=== PATIENT | female | born 1990 | race Caucasian/White ===

== ENCOUNTER 2023-07-11 18:42 | Emergency (ER) | payer OTHER, SELFPAY ==
[2023-07-11 18:47] VITALS: BP 125/80; PULSE 80; RESP 18; TEMP 36.9; O2SAT 100; BMI 43.1
--- NOTE | 2023-07-11 18:54 | ED.SKABFB1 ---
HPI - Skin/Abscess/Foreign Bdy General Chief complaint: Skin/Abscess/Foreign Body Stated complaint: PIMPLE ON STOMACH Time Seen by Provider: 07/11/23 18:47 Source: patient Mode of arrival: walk-in History of Present Illness HPI narrative: Patient is a 33-year-old female who presents to the emergency department for the evaluation of an abscess with cellulitis to the left lower quadrant of the abdomen for the last several days. She has a history of similar areas in the past but states this seems worse as it has not resolved on its own. There has been some drainage. No fevers or vomiting. She denies concern for . No medications taken prior to arrival Related Data Previous Rx's Medication Instructions Recorded cephalexin 500 mg capsule 500 mg PO Q8H 10 days #30 caps 07/11/23 ondansetron 4 mg disintegrating 4 mg PO Q6H PRN nausea and 07/11/23 tablet vomiting #12 tabs oxycodone-acetaminophen 5 mg-325 1 tab PO Q6H PRN pain #12 tabs 07/11/23 mg tablet (Percocet) sulfamethoxazole 800 1 tab PO BID 10 days #20 tabs 07/11/23 mg-trimethoprim 160 mg tablet (Bactrim DS) Allergies Allergy/AdvReac Type Severity Reaction Status Date / Time No Known Drug Allergies Allergy Verified 07/11/23 18:49 Review of Systems ROS Constitutional Denies: fever or chills Ears, nose, mouth, and throat Denies: throat pain or nasal congestion Cardiovascular Denies: chest pain Respiratory Denies: shortness of breath or cough Gastrointestinal Reports: abdominal pain; Denies: nausea or vomiting Musculoskeletal Denies: back pain Integumentary/Breast Reports: redness, skin pain and skin swelling; Denies: rash Neurological Denies: headache Hematologic/Lymphatic Denies: easy bruising or easy bleeding Exam Narrative Exam Narrative: Gen.: Awake, alert, in no distress Head: Normocephalic, atraumatic ENT: Moist mucous membranes Respiratory: No respiratory distress Gastrointestinal: 1.5 cm raised fluctuant area to the left lower abdomen with surrounding induration and blanching erythema. Abdomen is not distended, no guarding or rebound. Extremities: Moves extremities equally Psych: Normal mood and affect Neuro: No focal neuro deficit Skin: Warm, dry, intact Constitutional Vital Signs, click to edit/add: Last Vital Signs Temp 98.4 F 07/11/23 18:47 Pulse 80 07/11/23 18:47 Resp 18 07/11/23 18:47 BP 125/80 07/11/23 18:47 Pulse Ox 100 07/11/23 18:47 O2 Del Method Room Air 07/11/23 18:47 Course Vital Signs Vital signs: Vital Signs Temperature 98.4 F 07/11/23 18:47 Pulse Rate 80 07/11/23 18:47 Respiratory Rate 18 07/11/23 18:47 Blood Pressure 125/80 07/11/23 18:47 Pulse Oximetry 100 07/11/23 18:47 Oxygen Delivery Method Room Air 07/11/23 18:47 Temperature 98.4 F 07/11/23 18:47 Pulse Rate 80 07/11/23 18:47 Respiratory Rate 18 07/11/23 18:47 Blood Pressure 125/80 07/11/23 18:47 Pulse Oximetry 100 07/11/23 18:47 Oxygen Delivery Method Room Air 07/11/23 18:47 MDM - Skin/Abscess/Foreign Bdy MDM Narrative Medical decision making narrative: Incision and drainage performed with moderate drainage. Please see procedure note for details. Patient instructed to apply warm compresses, she is started on a short course of analgesics, Bactrim and Keflex. Follow-up with PCP and return to the ER if symptoms change or worsen. Incision and drainage: A single layer of iodine was used to prep the area. Drapes were placed to ensure isolation of the abscess and surrounding skin tissue. A regional field block was performed with 1% lidocaine. Incision was made with an 11 blade to the full dimension of the abscess, significant amount purulent material was expressed. Cultures were obtained and sent to the lab. A dry sterile dressing was placed. Patient tolerated the procedure well and will be discharged with Keflex, Bactrim and a short course of analgesic medications. Patient is to follow-up in the next 2-3 days with PCP or ED to have area evaluated. Medical Records Attestation: I reviewed the patient's medical records. Discharge Plan Discharge Stand Alone Forms: Portal Instructions Chief Complaint: Skin/Abscess/Foreign Body Clinical Impression: Abscess of skin or subcutaneous tissue Patient Disposition: Home, Self-Care Time of Disposition Decision: 19:11 Condition: Good Prescriptions / Home Meds: New sulfamethoxazole-trimethoprim [Bactrim DS] 800-160 mg tablet 1 tab PO BID 10 Days Qty: 20 0RF oxycodone-acetaminophen [Percocet] 5-325 mg tablet 1 tab PO Q6H PRN (Reason: pain) Qty: 12 0RF Rx Instructions: DX: L02.211 cephalexin 500 mg capsule 500 mg PO Q8H 10 Days Qty: 30 0RF ondansetron 4 mg tablet,disintegrating 4 mg PO Q6H PRN (Reason: nausea and vomiting) Qty: 12 0RF Instructions: Abscess (ED), Incision and Drainage (ED) Referrals: Physician,Non-Staff, MD [Primary Care Provider] - 1 week
[2023-07-11] MEDS: OXYCODONE HCL/ACETAMINOPHEN 5MG/325MG 2 TAB PO (19:24)
[2023-07-11] MEDS: LIDOCAINE HCL 1% 100 MG/10 ML MDV INJ (19:25)
[2023-07-11] MEDS: CEPHALEXIN 500 MG CAPSULE PO (19:25)
[2023-07-11] MEDS: SULFAMETHOXAZOLE/TRIMETHOPRIM 800-160 MG TABLET 1 TAB PO (19:25)
== END 2023-07-11 19:34 | disposition home or self-care (01) ==
PROVIDERS: Emergency Provider Student in an Organized Health Care Education/Training Program
DX: L02.211 Cutaneous abscess of abdominal wall (principal)
CPT/HCPCS: 10060; 87070; 87150; 87186; 99284

== ENCOUNTER 2023-12-23 20:28 | Emergency (ER) | payer OTHER, SELFPAY ==
[2023-12-23 20:32] VITALS: BP 135/86; PULSE 70; TEMP 36.8; O2SAT 98; BMI 41.9
--- NOTE | 2023-12-23 20:36 | XR_ITS ---
[address] [address] Patient Name: NAN BENTON MRN: [id number] date: 1990 Sex: F Assigned Patient Location: ER Current Patient Location: ER Accession/Order Number: [id number] Exam Date: 12/23/2023 20:42 Report Date: 12/23/2023 21:02 At the request of: MACHO ROMAN Procedure: XR hand LT min 3V Exam: Radiographs: XR hand LT min 3V Reason for exam: hand injury Comparison: None XR/XR hand LT min 3V IMPRESSION: Unremarkable left finger radiographs. Electronically authenticated by: ALBERT LITTLE Date: 12/23/2023 21:02
--- OUTSIDE RECORDS SUMMARY | 2023-12-23 20:36 | XMS_ITS | CCD ---
Author Organization [facility] Care Team Providers Care Last Pattern Grader Name Role Phone REQUEST, DR NONE LISTED Primary Care Unavaila RICH Delacruz Consulting Unavailable PATTI WHITE Admitting Unavailable PATTI WHITE Attending Unavailable Jaimee Bashir Unavailable NO FAMILY, PHYSICIAN Primary Care Provider DAY Plunkett Attending Provider Jaimee Bashir Attending Unavailable Jaimee Bashir Admitting Unavailable NO FAMILY, PHYSICIAN Primary Care Unavailable Medications Completed/Discontinued Medications Medication Drug Class(es) Dates Sig (Normalized) Sig (Original) Brompheniramine / Pseudoephedrine (2 sources) alpha-Adrenergic Agonist Bromfed Not-Taking Dexamethasone (4 sources) Corticosteroid Start: 04-09-2021 DEXAMETHASONE Apr, 10 mg Dexamethasone No t-Taking ibuprofen 600 mg oral tablet (2 sources) Nonsteroidal Anti-inflammatory Drug take 1 tablet by mouth three times daily at mealtime as needed Ibuprofen 600 MG 1 tablet with food or milk as needed Orally Three times a day for 10 day(s) Not-Taking penicillin v potassium 500 mg oral tablet (2 sources) Start: 04-09-20 take 1 tablet by mouth every eight hours Penicillin V Potassium 500 MG 1 tablet Orally tid for 10 day(s) Apr, Not-Taking Problems Problem Classification Problem Date Documented Da te Episodic/Chronic Headache; including migraine (4 sources) Headache; including migraine; Translations: [HEADACHE UNSPECIFIED] Onset: 04-03-2021 Mycoses (1 source) Tinea unguium Episodic Other connective tissue disease (1 source) Pain in right foot Episodic Other connective tissue disease (1 source) Calcaneal spur, right foot Episodic Other upper respiratory disease (1 source) Nasal congestion; Translations: [NASAL CONGESTION] Onset: 04-07-2021 Episodic Sprains and strains (1 source) Strain of unspecified muscle, fascia and tendon at shoulder and upper arm level, left arm, initial encounter Episodic Unclassified (1 source) Pain in right foot; Translations: [Pain in right foot] Onset: 05-20-2022 Viral infection (1 source) COVID-19; Translations: [COVID-19] Onset: 04-07-2021 Results Test Name Value Interpretation Reference Range Facility XR foot RT min 3V*on 023 XR foot RT min 3V* [facility] [employer] Other XR foot RT min 3V* [facility] [employer] Other XR foot RT min 3V* [address] [place] [address] [employer] Other XR foot RT min 3V* D[place] [id number] [employer] Other XR foot RT min 3V* XRay Report [employer] Other XR foot RT min 3V* Signed [employer] Other XR foot RT min 3V* Patient: Mireya Longoria MR#: [id number] [facility] [employer] Other XR foot RT min 3V* : 1990 Acct:[id number] [employer] Other XR foot RT min 3V* Age/Sex: 32 / F ADM Date: 05/20/22 [employer] [employer] Other XR foot RT min 3V* Loc: XDUCLY Room: Type: [facility] [employer] Other XR foot RT min 3V* Attending Dr: Jaimee BERNSTEIN [employer] Other XR foot RT min 3V* Copies to: DAY Padilla [employer] Other XR foot RT min 3V* Ordering Provider: DAY Padilla [employer] [employer] Other XR foot RT min 3V* Date of Service: 05/20/22 [facility] [employer] Other XR foot RT min 3V* XR/XR foot RT min 3V*: Right foot pain [employer] [employer] Other XR foot RT min 3V* XR foot RT min 3V* 05/20/2022 10:21 AM [employer] [employer] Other XR foot RT min 3V* SIGNS AND SYMPTOMS: Pain along the plantar aspect of the right calcaneus and foot [employer] Other XR foot RT min 3V* PROTOCOL: Frontal, lateral, and oblique radiographs of the right foot [employer] Other XR foot RT min 3V* COMPARISON: None [employer] Other XR foot RT min 3V* FINDINGS: [employer] Other XR foot RT min 3V* The joint spaces are preserved. There is no fracture or dislocation. There is mild plantar and [employer] Other XR foot RT min 3V* Achilles surface calcaneal spurring. No significant soft tissue swelling. [employer] Other XR foot RT min 3V* XR/XR foot RT min 3V* [employer] Other XR foot RT min 3V* IMPRESSION: [employer] Other XR foot RT min 3V* No acute bony injury. [employer] Other XR foot RT min 3V* Mild plantar and Achilles surface calcaneal spurring. [employer] Other XR foot RT min 3V* Impression dictated by: Chriss Nava M.D.05/20/2022 10:39 AM [employer] [employer] Other XR foot RT min 3V* Dictation Location: [place] [address] [employer] Other XR foot RT min 3V* Transcribed By: ANGEL 05/20/22 103 [facility] [employer] Other XR foot RT min 3V* Dictated By: Chriss Nava II, MD 05/20/22 1038 [facility] [employer] Other XR foot RT min 3V* Signed By: [facility] [employer] Other XR foot RT min 3V* 05/20/22 1039 [facility] [employer] Other XR foot RT min 3V* [facility] [place] [address] [place] [address] XRay Report Signed Patient: Mireya Longoria MR#: [id number] : 1990 Acct:[id number] Age/Sex: 32 / F ADM Date: 05/20/22 Loc: XDUCLY Room: Type: [facility] Attending Dr: Jaimee BERNSTEIN Copies to: DAY Padilla Ordering Provider: DAY Padilla Date of Service: 05/20/22 XR/XR foot RT min 3V*: Right foot pain XR foot RT min 3V* 05/20/2022 10:21 AM SIGNS AND SYMPTOMS: Pain along the plantar aspect of the right calcaneus and foot PROTOCOL: Frontal, lateral, and oblique radiographs of the right foot COMPARISON: None FINDINGS: The joint spaces are preserved. There is no fracture or dislocation. There is mild plantar and Achilles surface calcaneal spurring. No significant soft tissue swelling. XR/XR foot RT min 3V* IMPRESSION: No acute bony injury. Mild plantar and Achilles surface calcaneal spurring. Impression dictated by: Chriss Nava M.D.05/20/2022 10:39 AM Dictation Location: [place] [address] Transcribed By: ANGEL 05/20/22 1039 Dictated By: Chriss Nava II, MD 05/20/22 1038 Signed By: 05/20/22 1039 [facility] Covid-19 PCR (CVDTBH)on SARS-CoV-2 (COVID-19) RNA AISHWARYA+probe Ql (Unsp spec) Detected Critically abnormal NOT DETECTED [facility] Comment on above: Result Comment: This test is not yet approved or cleared by the [place] FDA. When there are no FDA-approved or cleared tests available, and other criteria are met, FDA can make tests available under an emergency access mechanism called an Emergency Use Authorization (EUA). The EUA for this test is supported by the [place] of Health and Human Service's declaration that circumstances exist to justify the emergency use of in vitro diagnostics for the detection and/or diagnosis of the virus that causes COVID-19. This EUA will remain in effect for the duration of the COVID-19 declaration justifying emergency of IVDs, unless it is terminated or revoked by the FDA (after which the test may no longer be used). Performed By: #### [facility] #### [facility] [address] [place] [address] Dr. Azeb Argueta Coding Summaryon 05-29-2020 Coding Summary CODING DATE: 05/29/2020 [facility] STATUS: Home PAYOR: Workers Compensation APC DESCRIPTION 5692 Level 2 Drug Administration ADMIT DX: REASON FOR VISIT DX: S01.21XA Laceration without foreign body of nose, initial encounter FINAL DX: PRINCIPAL: S01.21XA Laceration without foreign body of nose, initial encounter SECONDARY: W22.8XXA Striking against or struck by other objects, initial encounter Z23 Encounter for immunization PYMT PROC APC STAT DESCRIPTION DOCTOR NAME DATE NOTE: The code number assigned matches the documented diagnosis and / or procedure in the patient's chart. However, the narrative phrase printed from the coding software may appear abbreviated, or result in slightly different terminology. Coded By: El Roca' Date Saved: 05/29/2020 03:07 pm [facility] Coding Summary CODING DATE: 05/29/2020 [facility] STATUS: Home PAYOR: Workers Compensation APC DESCRIPTION 5692 Level 2 Drug Administration ADMIT DX: REASON FOR VISIT DX: S01.21XA Laceration without foreign body of nose, initial encounter FINAL DX: PRINCIPAL: S01.21XA Laceration without foreign body of nose, initial encounter SECONDARY: W22.8XXA Striking against or struck by other objects, initial encounter Z23 Encounter for immunization PYMT PROC APC STAT DESCRIPTION DOCTOR NAME DATE NOTE: The code number assigned matches the documented diagnosis and / or procedure in the patient's chart. However, the narrative phrase printed from the coding software may appear abbreviated, or result in slightly different terminology. Coded By: Miriam Roca Date Saved: 05/29/2020 03:07 pm [facility] Coding Summary CODING DATE: 05/29/2020 [facility] STATUS: Home PAYOR: Workers Compensation ADMIT DX: REASON FOR VISIT DX: S01.21XA Laceration without foreign body of nose, initial encounter FINAL DX: PRINCIPAL: S01.21XA Laceration without foreign body of nose, initial encounter SECONDARY: W22.8XXA Striking against or struck by other objects, initial encounter Z23 Encounter for immunization PYMT PROC APC STAT DESCRIPTION DOCTOR NAME DATE NOTE: The code number assigned matches the documented diagnosis and / or procedure in the patient's chart. However, the narrative phrase printed from the coding software may appear abbreviated, or result in slightly different terminology. Coded By: Miriam Roca Date Saved: 05/29/2020 03:07 pm [facility] Discharge Instructionson Discharge Instructions [id number] 2C#[id number] [facility] ED Clinical Summaryon 2020 ED Clinical Summary [facility] ? Urgent Care [address] [place], [place] [id number] Clinical Summary PERSON INFORMATION Name: MIREYA LONGORIA Age: 30 Years Sex: FEMALE : 1990 MRN: Acct#: Visit Reason: UC - Skin Problem: simple; UC - Laceration; FACIAL LAC Arrival: 05/28/2020 18:20:13 Discharge: 05/28/2020 19:12:00 LOS: 000 00:52 Check In: 05/28/2020 18:20:13 Checkout: 05/28/2020 19:12:00 Address: [facility] [place] [address] PCP: Provider, None PROVIDER INFORMATION Provider Role Assigned Unassigned Ida Murphy COURSE INSTRUCTOR Nurse 05/28/2020 18:22:51 Don Pedro ED PA 05/28/2020 18:24:50 VITALS INFORMATION Vital Sign Triage Latest Temperature Tympanic Temperature Temporal Artery Pulse Rate O2 Sat 98 % 98 % Respiratory Rate Blood Pressure /78 mmHg /78 mmHg MEDICAL INFORMATION Medications Given: Medication Dose Route Tdap 0.5 mL IM Allergy Information: No known allergies PHYSICIAN DOCUMENTATION DISCHARGE INFORMATION: Discharge Disposition: Home Discharge Location: Home PATIENT EDUCATION INFORMATION Instructions: Laceration Care, Adult, [id number] Follow-Up: With: Address: When: None Provider [address] [place] [id number] Comments: Apply the bacitracin twice daily for the next 5 to 7 days DIAGNOSIS: Nasal laceration - closed, healing Patient Understands: Yes - Patient/family/family day carer verbalizes understanding of instructions given Comment: Normal [facility] ED Patient Summaryon 021 ED Patient Summary [facility] ? Urgent Care [address] [place], [place] [id number] PATIENT DISCHARGE INSTRUCTIONS Patient Information Name: MIREYA LONGORIA Age: 30 Years Date of : 1990 Reason For Visit: UC - Skin Problem: simple; UC - Laceration; FACIAL LAC Arrival Time: 05/28/2020 18:20:13 Primary Care Physician: Provider, Mejia Attending Physician: Don Pedro Comment: Patient Education With: Address: When: None Provider [address] [place] [address] Comments: Apply the bacitracin twice daily for the next 5 to 7 days Laceration Care, Adult A laceration is a cut that may go through all layers of the skin. The cut may also go into the tissue that is right under the skin. Some cuts heal on their own. Others need to be closed with stitches (sutures), franck, skin adhesive strips, or skin glue. Taking care of your injury lowers your risk of infection, helps your injury to heal better, and may prevent scarring. Supplies needed: ? Soap. ? Water. ? Hand bonded strand operator. ? Bandage (dressing). ? Antibiotic ointment. ? Clean towel. How to take care of your cut Wash your hands with soap and water before touching your wound or changing your bandage. If soap and water are not available, use hand bonded strand operator. If your doctor used stitches or franck: ? Keep the wound clean and dry. ? If you were given a bandage, change it at least once a day as told by your doctor. You should also change it if it gets wet or dirty. ? Keep the wound completely dry for the first 24 hours, or as told by your doctor. After that, you may take a shower or a bath. Do not get the wound soaked in water until after the stitches or franck have been removed. ? Clean the wound once a day, or as told by your doctor: ? Wash the wound with soap and water. ? Rinse the wound with water to remove all soap. ? Pat the wound dry with a clean towel. Do not rub the wound. ? After you clean the wound, put a thin layer of antibiotic ointment on it as told by your doctor. This ointment: ? Helps to prevent infection. ? Keeps the bandage from sticking to the wound. ? Have your stitches or franck removed as told by your doctor. If your doctor used skin adhesive strips: ? Keep the wound clean and dry. ? If you were given a bandage, you should change it at least once a day as told by your doctor. You should also change it if it gets wet or dirty. ? Do not get the skin adhesive strips wet. You can take a shower or a bath, but keep the wound dry. ? If the wound gets wet, pat it dry with a clean towel. Do not rub the wound. ? Skin adhesive strips fall off on their own. You can trim the strips as the wound heals. Do not remove any strips that are still stuck to the wound. They will fall off after a while. If your doctor used skin glue: ? Try to keep your wound dry, but you may briefly wet it in the shower or bath. Do not soak the wound in water, such as by swimming. ? After you take a shower or a bath, gently pat the wound dry with a clean towel. Do not rub the wound. ? Do not do any activities that will make you really sweaty until the skin glue has fallen off on its own. ? Do not apply liquid, cream, or ointment medicine to your wound while the skin glue is still on. ? If you were given a bandage, you should change it at least once a day or as told by your doctor. You should also change it if it gets dirty or wet. ? If a bandage is placed over the wound, do not let the tape touch the skin glue. ? Do not pick at the glue. The skin glue usually stays on for 5?10 days. Then, it falls off the skin. General instructions ? Take svhz-hud-kuosabx and prescription medicines only as told by your doctor. ? If you were given antibiotic medicine or ointment, take or apply it as told by your doctor. Do not stop using it even if your condition improves. ? Do not scratch or pick at the wound. ? Check your wound every day for signs of infection. Watch for: ? Redness, swelling, or pain. ? Fluid, blood, or pus. ? Raise (elevate) the injured area above the level of your heart while you are sitting or lying down. ? If directed, put ice on the affected area: ? Put ice in a plastic bag. ? Place a towel between your skin and the bag. ? Leave the ice on for 20 minutes, 2?3 times a day. ? Prevent scarring by covering your wound with sunscreen of at least 30 SPF whenever you are outside after your wound has healed. ? Keep all follow-up visits as told by your doctor. This is important. Get help if: ? You got a tetanus shot and you have any of these problems at the injection site: ? Swelling. ? Very bad pain. ? Redness. ? Bleeding. ? You have a fever. ? A wound that was closed breaks open. ? You notice a bad smell coming from your wound or your bandage. ? You notice something coming out of the wound, such as wood or glass. ? Medicine does not relieve your pain. ? You have more redness, swelling, or pain at the site of your wound. ? You have fluid, blood, or pus coming from your wound. ? You notice a change in the color of your skin near your wound. ? You need to change the bandage often because fluid, blood, or pus is coming from the wound. ? You start to have a new rash. ? You start to have numbness around the wound. Get help right away if: ? You have very bad swelling around the wound. ? Your pain suddenly gets worse and is very bad. ? You notice painful lumps near the wound or anywhere on your body. ? You have a red streak going away from your wound. ? The wound is on your hand or foot, and: ? You cannot move a finger or toe. ? Your fingers or toes look pale or bluish. Summary ? A laceration is a cut that may go through all layers of the skin. The cut may also go into the tissue right under the skin. ? Some cuts heal on their own. Others need to be closed with stitches, franck, skin adhesive strips, or skin glue. ? Follow your doctor's instructions for caring for your cut. Proper care of a cut lowers the risk of infection, helps the cut heal better, and prevents scarring. This information is not intended to replace advice given to you by your health care provider. Make sure you discuss any questions you have with your health care provider. Document Released: 10/05/2008 Document Revised: 06/17/2018 Document Reviewed: 05/09/2018 [employer] Patient Education ? 2020 [employer]. Medication Information: The exam and treatment you received today in the [facility] Emergency Department were for an urgent problem and are not intended as complete care. It is important for you to follow up with a doctor, nurse practitioner, or physician?s kindergarten teacher assistant for ongoing care. If your symptoms become worse or you do not improve as expected and you are unable to reach your usual health care provider, you should return to the Emergency Department, we are available 24 hours a day. For those patients who have received Radiology results, the interpretation of your X-ray as given to you by our Emergency Department physician is only a preliminary report. The Radiologist will review your films and if there is a change in the diagnosis you will be notified by phone. Please make sure you have provided a working phone number so we can reach you if necessary. In the event that you had a lab culture while you were a patient in the Emergency Department, you will be notified by phone if there is a need to change your antibiotic. Please make sure you have provided a working phone number so we can reach you if necessary. [facility] Emergency Department has provided you with a complete list of medications post discharge. Please inform your treater/provider of your visit and for further instruction on these medications. Any specific questions regarding your chronic medications and dosages should be discussed with your primary care physician(s) and/or pharmacist. New Medications Printed Prescriptions bacitracin topical (bacitracin 500 units/g topical ointment) 1 julian Topical 2 times a day. Refills: 0. Medications to Continue That Have Not Changed Other Medications multivitamin (Multivitamin, generic) every day. Visit Information Visit Diagnosis: Diagnoses This Visit Nasal laceration - closed, healing (S01.21XA) UC - Laceration ([id number]) UC - Skin Problem: simple ([id number]) If you received any narcotics, sedation, or any other medication that causes drowsiness for the next 24 hours, unless otherwise directed: ? Do not drive a car. ? Do not operate machinery such as power tools, lawn mowers, drills, sewing machines, or stoves ? Avoid alcoholic beverages and drugs for allergies, nerves, or sleep ? Do not make important personal or business decisions or sign any legal documents Reason for Visit: Patient pushing cart in cooler at [facility], plastic flaps in cooler came back and hit patient in the face/head. Patient has small cut on the bridge of her nose and is c/o headache and pain around eyes. Pt denies any nausea or vomiting. Allergies: Substance Reaction Symptoms Type Comments No known allergies Drug Vital Signs: Vitals and Measurements this Visit (last charted value for your 05/28/2020 visit) Vital Signs This Visit Temperature Oral: 36.7 DegC Peripheral Pulse Rate: 75 bpm Respiratory Rate: 16 br/min Systolic Blood Pressure: 115 mmHg Diastolic Blood Pressure: 78 mmHg SpO2: 98 % Oxygen Therapy: Room air Measurements This Visit Height: 162.56 cm Weight: 127.10 kg Body Mass Index: 48.1 kg/m2 Problems List: Problem Onset Comments No Problems found Major Tests and Procedures: The following procedures and tests were performed during your ED visit. Laboratory Radiology Cardiology Viruses or Bacteria What?s got you sick? Antibiotics only treat bacterial infections. Viral illnesses cannot be treated with antibiotics. When an antibiotic is not prescribed, ask your healthcare professional for tips on how to relieve symptoms and feel better. Usual Cause Illness Viruses Bacteria Antibiotic Needed Cold/Runny Nose NO Bronchitis/Chest Cold (in otherwise healthy children and adults) NO Whooping Cough Yes Flu NO Strep Throat Yes Sore Throat (except strep) NO Fluid in the middle ear (otitis media with effusion) NO Urinary Tract Infection Yes Antibiotics Aren?t Always the Answer www.cdc.gov/getsmar t GET SMART Know When Antibiotics Work [place] Department of Health and Human Services Centers for Disease Control and Prevention January 2014 [facility] Patient Handouton 05-28-2020 Patient Handout Patient Education Materials Follows: Laceration Care, Adult A laceration is a cut that may go through all layers of the skin. The cut may also go into the tissue that is right under the skin. Some cuts heal on their own. Others need to be closed with stitches (sutures), franck, skin adhesive strips, or skin glue. Taking care of your injury lowers your risk of infection, helps your injury to heal better, and may prevent scarring. Supplies needed: ? Soap. ? Water. ? Hand bonded strand operator. ? Bandage (dressing). ? Antibiotic ointment. ? Clean towel. How to take care of your cut Wash your hands with soap and water before touching your wound or changing your bandage. If soap and water are not available, use hand bonded strand operator. If your doctor used stitches or franck: ? Keep the wound clean and dry. ? If you were given a bandage, change it at least once a day as told by your doctor. You should also change it if it gets wet or dirty. ? Keep the wound completely dry for the first 24 hours, or as told by your doctor. After that, you may take a shower or a bath. Do not get the wound soaked in water until after the stitches or franck have been removed. ? Clean the wound once a day, or as told by your doctor: ? Wash the wound with soap and water. ? Rinse the wound with water to remove all soap. ? Pat the wound dry with a clean towel. Do not rub the wound. ? After you clean the wound, put a thin layer of antibiotic ointment on it as told by your doctor. This ointment: ? Helps to prevent infection. ? Keeps the bandage from sticking to the wound. ? Have your stitches or franck removed as told by your doctor. If your doctor used skin adhesive strips: ? Keep the wound clean and dry. ? If you were given a bandage, you should change it at least once a day as told by your doctor. You should also change it if it gets wet or dirty. ? Do not get the skin adhesive strips wet. You can take a shower or a bath, but keep the wound dry. ? If the wound gets wet, pat it dry with a clean towel. Do not rub the wound. ? Skin adhesive strips fall off on their own. You can trim the strips as the wound heals. Do not remove any strips that are still stuck to the wound. They will fall off after a while. If your doctor used skin glue: ? Try to keep your wound dry, but you may briefly wet it in the shower or bath. Do not soak the wound in water, such as by swimming. ? After you take a shower or a bath, gently pat the wound dry with a clean towel. Do not rub the wound. ? Do not do any activities that will make you really sweaty until the skin glue has fallen off on its own. ? Do not apply liquid, cream, or ointment medicine to your wound while the skin glue is still on. ? If you were given a bandage, you should change it at least once a day or as told by your doctor. You should also change it if it gets dirty or wet. ? If a bandage is placed over the wound, do not let the tape touch the skin glue. ? Do not pick at the glue. The skin glue usually stays on for 5?10 days. Then, it falls off the skin. General instructions ? Take lkzb-emi-xqejzxk and prescription medicines only as told by your doctor. ? If you were given antibiotic medicine or ointment, take or apply it as told by your doctor. Do not stop using it even if your condition improves. ? Do not scratch or pick at the wound. ? Check your wound every day for signs of infection. Watch for: ? Redness, swelling, or pain. ? Fluid, blood, or pus. ? Raise (elevate) the injured area above the level of your heart while you are sitting or lying down. ? If directed, put ice on the affected area: ? Put ice in a plastic bag. ? Place a towel between your skin and the bag. ? Leave the ice on for 20 minutes, 2?3 times a day. ? Prevent scarring by covering your wound with sunscreen of at least 30 SPF whenever you are outside after your wound has healed. ? Keep all follow-up visits as told by your doctor. This is important. Get help if: ? You got a tetanus shot and you have any of these problems at the injection site: ? Swelling. ? Very bad pain. ? Redness. ? Bleeding. ? You have a fever. ? A wound that was closed breaks open. ? You notice a bad smell coming from your wound or your bandage. ? You notice something coming out of the wound, such as wood or glass. ? Medicine does not relieve your pain. ? You have more redness, swelling, or pain at the site of your wound. ? You have fluid, blood, or pus coming from your wound. ? You notice a change in the color of your skin near your wound. ? You need to change the bandage often because fluid, blood, or pus is coming from the wound. ? You start to have a new rash. ? You start to have numbness around the wound. Get help right away if: ? You have very bad swelling around the wound. ? Your pain suddenly gets worse and is very bad. ? You notice painful lumps near the wound or anywhere on your body. ? You have a red streak going away from your wound. ? The wound is on your hand or foot, and: ? You cannot move a finger or toe. ? Your fingers or toes look pale or bluish. Summary ? A laceration is a cut that may go through all layers of the skin. The cut may also go into the tissue right under the skin. ? Some cuts heal on their own. Others need to be closed with stitches, franck, skin adhesive strips, or skin glue. ? Follow your doctor's instructions for caring for your cut. Proper care of a cut lowers the risk of infection, helps the cut heal better, and prevents scarring. This information is not intended to replace advice given to you by your health care provider. Make sure you discuss any questions you have with your health care provider. Document Released: 10/05/2008 Document Revised: 06/17/2018 Document Reviewed: 05/09/2018 [employer] Patient Education ? 2020 [employer] [facility] Urgent Care Note- Provideron 05-28-2020 Urgent Care Note- Provider Patient: MIREYA LONGORIA Age: 30 years Sex: FEMALE : 1990 Associated Diagnoses: Nasal laceration - closed, healing Author: Don Pedro Basic Information Time seen: Date & time 05/28/2020 18:29:00. History source: Patient. History limitation: None. Additional information: Chief Complaint from Nursing Triage Note : Chief Complaint 05/28/2020 18:28 EST Chief Complaint Patient pushing cart in cooler at [facility], plastic flaps in cooler came back and hit patient in the face/head. Patient has small cut on the bridge of her nose and is c/o headache and pain around eyes. Pt denies any nausea or vomiting. (Modified) . History of Present Illness Patient is a 30-year-old female comes in for evaluation of a laceration to her nose. Patient states she was using a cart to hold open a flap at [facility]. The flap and struck her in the nose. This caused a superficial laceration to the nose. Patient was able to finish out her shift. It was recommended that she come in for evaluation. Patient states some discomfort to the nose and her forehead. No other complaints or concerns no nausea vomiting. Review of Systems Constitutional symptoms: Negative except as documented in HPI. Skin symptoms: Negative except as documented in HPI. Additional review of systems information: All other systems reviewed and otherwise negative. Health Status Allergies: Allergic Reactions (Selected) No known allergies. Medications: (Selected) Documented Medications Documented Multivitamin, generic: Daily, 0 Refill(s). Past Medical/ Family/ Social History Medical history: No active or resolved past medical history items have been selected or recorded.. Surgical history: No active procedure history items have been selected or recorded.. Family history: No family history items have been selected or recorded.. Social history: Social & Psychosocial Habits Alcohol 05/28/2020 Alcohol Use: Current Frequency: 1-2 times per week Substance Abuse 05/28/2020 Substance use: Never Tobacco 05/28/2020 Smoking tobacco use: Never (less than 100 in l Electronic Cigarette/Vaping 05/28/2020 Electronic Cigarette Use: Never . Problem list: No qualifying data available . Physical Examination Vital Signs Vital Signs 05/28/2020 18:28 EST Temperature Oral 36.7 DegC Peripheral Pulse Rate 75 bpm Respiratory Rate 16 br/min Systolic Blood Pressure 115 mmHg Diastolic Blood Pressure 78 mmHg SpO2 98 % Oxygen Therapy Room air . Measurements 05/28/2020 18:28 EST Height 162.56 cm Weight 127.10 kg Body Mass Index 48.1 kg/m2 . General: Alert, no acute distress. Skin: Warm, dry, 1 cm superficial laceration closed and healing. Head: Normocephalic, atraumatic, The nose and the forehead are nontender to palpation. Eye: Normal conjunctiva. Ears, nose, mouth and throat: Nares are clear of blood. Cardiovascular: Regular rate and rhythm. Respiratory: Lungs are clear to auscultation, respirations are non-labored, breath sounds are equal, Symmetrical chest wall expansion. Back: Normal range of motion. Musculoskeletal: Normal ROM. Psychiatric: Cooperative, appropriate mood & affect. Medical Decision Making Orders Launch Orders Pharmacy: tetanus/diphth/pert uss (Tdap) adult/adol (Order): 0.5 mL, IM, Once. Patient with a closed healing superficial laceration to the bridge of the nose. Nares are clear of blood. The nose and the forehead are nontender to palpation. No raccoon eyes. Patient smiling happy in no acute distress. Pt was able to finish out her shift. Impression and Plan Diagnosis Nasal laceration - closed, healing ([id number] S01.21XA, Discharge, Medical) Plan Prescriptions: Launch prescriptions Pharmacy: bacitracin 500 units/g topical ointment (Prescribe): 1 julian, TOP, BID, 30 gm, 0 Refill(s). Patient was given the following educational materials: Laceration Care, Adult, [id number]-li-[id number]. Follow up with: None Provider Apply the bacitracin twice daily for the next 5 to 7 days. Counseled: Patient, Regarding diagnosis, Regarding diagnostic results, Regarding treatment plan, Regarding prescription, Patient indicated understanding of instructions. Normal [facility] [address] 021 Urgent Care Record [facility] ? Urgent Care [address] [id number] PATIENT DISCHARGE INSTRUCTIONS Patient Information Name: MIREYA LONGORIA Age: 30 Years Date of : 1990 [facility]: [id number] Reason For Visit: UC - Skin Problem: simple; UC - Laceration; FACIAL LAC Arrival Time: 05/28/2020 18:20:13 Primary Care Physician: Provider, None Attending Physician: Don Pedro Comment: Visit Diagnosis: Diagnoses This Visit Nasal laceration - closed, healing (S01.21XA) UC - Laceration ([id number]) UC - Skin Problem: simple ([id number]) If you received any narcotics, sedation, or any other medication that causes drowsiness for the next 24 hours, unless otherwise directed: ? Do not drive a car. ? Do not operate machinery such as power tools, lawn mowers, drills, sewing machines, or stoves ? Avoid alcoholic beverages and drugs for allergies, nerves, or sleep ? Do not make important personal or business decisions or sign any legal documents With: Address: When: None Provider [address] [place] [address] Comments: Apply the bacitracin twice daily for the next 5 to 7 days Medication Information: The exam and treatment you received today in the [facility] were for an urgent problem and are not intended as complete care. It is important for you to follow up with a doctor, nurse practitioner, or physician?s kindergarten teacher assistant for ongoing care. If your symptoms become worse or you do not improve as expected and you are unable to reach your usual health care provider, you should return to the Emergency Department, we are available 24 hours a day. For those patients who have received Radiology results, the interpretation of your X-ray as given to you by our Urgent Care physician is only a preliminary report. The Radiologist will review your films and if there is a change in the diagnosis you will be notified by phone. Please make sure you have provided a working phone number so we can reach you if necessary. In the event that you had a lab culture while you were a patient in the Urgent Care, you will be notified by phone if there is a need to change your antibiotic. Please make sure you have provided a working phone number so we can reach you if necessary. [facility] has provided you with a complete list of medications post discharge. Please inform your treater/provider of your visit and for further instruction on these medications. Any specific questions regarding your chronic medications and dosages should be discussed with your primary care physician(s) and/or pharmacist. New Medications Printed Prescriptions bacitracin topical (bacitracin 500 units/g topical ointment) 1 julian Topical 2 times a day. Refills: 0. Medications to Continue That Have Not Changed Other Medications multivitamin (Multivitamin, generic) every day. Visit Information Allergies: Substance Reaction Symptoms Type Comments No known allergies Drug Vital Signs: Vitals and Measurements this Visit (last charted value for your 05/28/2020 visit) Vital Signs This Visit Temperature Oral: 36.7 DegC Peripheral Pulse Rate: 75 bpm Respiratory Rate: 16 br/min Systolic Blood Pressure: 115 mmHg Diastolic Blood Pressure: 78 mmHg SpO2: 98 % Oxygen Therapy: Room air Measurements This Visit Height: 162.56 cm Weight: 127.10 kg Body Mass Index: 48.1 kg/m2 Problems List: Problem Onset Comments No Problems found Patient Education Laceration Care, Adult A laceration is a cut that may go through all layers of the skin. The cut may also go into the tissue that is right under the skin. Some cuts heal on their own. Others need to be closed with stitches (sutures), franck, skin adhesive strips, or skin glue. Taking care of your injury lowers your risk of infection, helps your injury to heal better, and may prevent scarring. Supplies needed: ? Soap. ? Water. ? Hand bonded strand operator. ? Bandage (dressing). ? Antibiotic ointment. ? Clean towel. How to take care of your cut Wash your hands with soap and water before touching your wound or changing your bandage. If soap and water are not available, use hand bonded strand operator. If your doctor used stitches or franck: ? Keep the wound clean and dry. ? If you were given a bandage, change it at least once a day as told by your doctor. You should also change it if it gets wet or dirty. ? Keep the wound completely dry for the first 24 hours, or as told by your doctor. After that, you may take a shower or a bath. Do not get the wound soaked in water until after the stitches or franck have been removed. ? Clean the wound once a day, or as told by your doctor: ? Wash the wound with soap and water. ? Rinse the wound with water to remove all soap. ? Pat the wound dry with a clean towel. Do not rub the wound. ? After you clean the wound, put a thin layer of antibiotic ointment on it as told by your doctor. This ointment: ? Helps to prevent infection. ? Keeps the bandage from sticking to the wound. ? Have your stitches or franck removed as told by your doctor. If your doctor used skin adhesive strips: ? Keep the wound clean and dry. ? If you were given a bandage, you should change it at least once a day as told by your doctor. You should also change it if it gets wet or dirty. ? Do not get the skin adhesive strips wet. You can take a shower or a bath, but keep the wound dry. ? If the wound gets wet, pat it dry with a clean towel. Do not rub the wound. ? Skin adhesive strips fall off on their own. You can trim the strips as the wound heals. Do not remove any strips that are still stuck to the wound. They will fall off after a while. If your doctor used skin glue: ? Try to keep your wound dry, but you may briefly wet it in the shower or bath. Do not soak the wound in water, such as by swimming. ? After you take a shower or a bath, gently pat the wound dry with a clean towel. Do not rub the wound. ? Do not do any activities that will make you really sweaty until the skin glue has fallen off on its own. ? Do not apply liquid, cream, or ointment medicine to your wound while the skin glue is still on. ? If you were given a bandage, you should change it at least once a day or as told by your doctor. You should also change it if it gets dirty or wet. ? If a bandage is placed over the wound, do not let the tape touch the skin glue. ? Do not pick at the glue. The skin glue usually stays on for 5?10 days. Then, it falls off the skin. General instructions ? Take subc-dfm-sqkxylb and prescription medicines only as told by your doctor. ? If you were given antibiotic medicine or ointment, take or apply it as told by your doctor. Do not stop using it even if your condition improves. ? Do not scratch or pick at the wound. ? Check your wound every day for signs of infection. Watch for: ? Redness, swelling, or pain. ? Fluid, blood, or pus. ? Raise (elevate) the injured area above the level of your heart while you are sitting or lying down. ? If directed, put ice on the affected area: ? Put ice in a plastic bag. ? Place a towel between your skin and the bag. ? Leave the ice on for 20 minutes, 2?3 times a day. ? Prevent scarring by covering your wound with sunscreen of at least 30 SPF whenever you are outside after your wound has healed. ? Keep all follow-up visits as told by your doctor. This is important. Get help if: ? You got a tetanus shot and you have any of these problems at the injection site: ? Swelling. ? Very bad pain. ? Redness. ? Bleeding. ? You have a fever. ? A wound that was closed breaks open. ? You notice a bad smell coming from your wound or your bandage. ? You notice something coming out of the wound, such as wood or glass. ? Medicine does not relieve your pain. ? You have more redness, swelling, or pain at the site of your wound. ? You have fluid, blood, or pus coming from your wound. ? You notice a change in the color of your skin near your wound. ? You need to change the bandage often because fluid, blood, or pus is coming from the wound. ? You start to have a new rash. ? You start to have numbness around the wound. Get help right away if: ? You have very bad swelling around the wound. ? Your pain suddenly gets worse and is very bad. ? You notice painful lumps near the wound or anywhere on your body. ? You have a red streak going away from your wound. ? The wound is on your hand or foot, and: ? You cannot move a finger or toe. ? Your fingers or toes look pale or bluish. Summary ? A laceration is a cut that may go through all layers of the skin. The cut may also go into the tissue right under the skin. ? Some cuts heal on their own. Others need to be closed with stitches, franck, skin adhesive strips, or skin glue. ? Follow your doctor's instructions for caring for your cut. Proper care of a cut lowers the risk of infection, helps the cut heal better, and prevents scarring. This information is not intended to replace advice given to you by your health care provider. Make sure you discuss any questions you have with your health care provider. Document Released: 10/05/2008 Document Revised: 06/17/2018 Document Reviewed: 05/09/2018 [employer] Patient Education ? 2019 [employer]. Viruses or Bacteria What?s got you sick? Antibiotics only treat bacterial infections. Viral illnesses cannot be treated with antibiotics. When an antibiotic is not prescribed, ask your healthcare professional for tips on how to relieve symptoms and feel better. Usual Cause Illness Viruses Bacteria Antibiotic Needed Cold/Runny Nose NO Bronchitis/Chest Cold (in otherwise healthy children and adults) NO Whooping Cough Yes Flu NO Strep Throat Yes Sore Throat (except strep) NO Fluid in the middle ear (otitis media with effusion) NO Urinary Tract Infection Yes Antibiotics Aren?t Always the Answer www.cdc.gov/getsmar t GET SMART Know When Antibiotics Work U.S. Department of Health and Human Services Centers for Disease Control and Prevention January 2014 Normal [facility] Vital Signs Date Time Vital Sign Value Performing Clinician Facility 05-20-2022 10:55-0500 Body height 162.56 cm Jaimee Bashir Other [facility] Other 05-20-2022 10:55-0500 Body mass index (BMI) [Ratio] 42.74 kg/m2 Jaimee Bashir Other [facility] Other 05-20-2022 10:55-0500 Body temperature 97.1 [degF] Jaimee Bashir Other [facility] Other 05-20-2022 10:55-0500 Body weight 112.95 kg Jaimee Bashir Other [facility] Other 05-20-2022 10:55-0500 Diastolic blood pressure 78 mm[Hg] Jaimee Krysten Other [facility] Other 05-20-2022 10:55-0500 Respiratory rate 18 /min Jaimee Krysten Other [facility] Other 05-20-2022 10:55-0500 SaO2% (BldA) [Mass fraction] 98 % Jaimee Krysten Other [facility] Other 05-20-2022 10:55-0500 Systolic blood pressure 114 mm[Hg] Jaimee Krysten Other [facility] Other 03-13-2022 18:20-0500 Body height 162.56 cm Jaimee Krysten Other [facility] Other 03-13-2022 18:20-0500 Body mass index (BMI) [Ratio] 42.74 kg/m2 Jaimee Krysten Other [facility] Other 03-13-2022 18:20-0500 Body temperature 98 [degF] Jaimee Krysten Other [facility] Other 03-13-2022 18:20-0500 Body weight 112.95 kg Jaimee Krysten Other [facility] Other 03-13-2022 18:20-0500 Diastolic blood pressure 71 mm[Hg] Jaimee Krysten Other [facility] Other 03-13-2022 18:20-0500 Respiratory rate 18 /min Jaimee Krysten Other [facility] Other 03-13-2022 18:20-0500 SaO2% (BldA) [Mass fraction] 100 % Jaimee Bashir Other [facility] Other 03-13-2022 18:20-0500 Systolic blood pressure 110 mm[Hg] Jaimee Bashir Other [facility] Other Encounters Encounter Date Encounter Type Care Provider Facility Start: 05-20-2022 Office outpatient visit 15 minutes Jaimee Krysten [facility] Start: 05-20-2022 End: 05-20-2022 ambulatory Jaimee Krysten Facility:[facility] Start: 05-20-2022 End: 05-20-2022 ambulatory PHYSICIAN [facility] Work Phone: Start: 05-20-2022 End: 05-20-2022 Patient encounter procedure PHYSICIAN [facility] Work Phone: Start: 03-13-2022 End: 03-13-2022 ambulatory Jaimee Bashir Other [facility] Other Start: 03-13-2022 Office outpatient visit 15 minutes Jaimee Krysten [facility] Start: 04-03-2021 End: 04-03-[address] NONE LISTED REQUEST Facility: Procedures Date Procedure Procedure Detail Performing Clinician Start: 05-20-2022 X-ray of right foot PHY SICIAN NO FAMILY Payers Date Payer Category Payer Self-pay [id number] 1990 Unknown [id number] 1961 Private Health Insurance [id number] Unknown [id number] Social History Date Type Detail Facility Unknown if ever smoked [facility] Other Sex Assigned At Sex Assigned At Bir th [facility] Other Start: 1990 Sex Assigned At Female F [facility] Evaluation note 05-20-2022 Note Date & Type Note Facility 05-20-2022 Evaluation note Encounter Date Diagnosis Assessment Notes May, Right foot pain (ICD-10 - M79.671) May, Calcaneal spur of right foot (ICD-10 - M77.31) Drink plenty fluids, get plenty of rest. Take Tylenol or Motrin for pain. Consider putting a heel pad in your shoe for comfort. Ice and elevate your foot 2-3 times a day. Follow-up with a social sciences lecturer or orthopedic doctor if no improvement in 3 to 4 days. May, Other Calcaneal apophysitis home care material was printed [facility] Other Evaluation note 03-13-2022 Note Date & Type Note Facility 03-13-2022 Evaluation note Encounter Date Diagnosis Assessment Notes Mar, Strain of left shoulder, initial encounter (ICD-10 - S46.912A) Shoulder sprain material was printed Take the Motrin as prescribed for your shoulder pain. Consider applying Vicks VapoRub to your fungal toenails daily, follow-up with family physician if no improvement in your shoulder or nail fungus in 1 week. Mar, Fungal infection of nail (ICD-10 - B35.1) [facility] Other Evaluation note Note Date & Type Note Facility Evaluation note No assessment information availa [facility] Work Phone: Summary Purpose Family History No Family History Records FoundNo Family History Records FoundNo Family History Records Found Advance Directives Advance Directive Response Recorded Date/ Time Advance Directives No November 09 3:26pm Chief Complaint and Reason for Visit Chief Complaint M79.671 Additional Source Comments INFORMATION SOURCE (unrecogn ized section and content) DATE CREATED AUTHOR 06/15/2020 [facility] DATE CREATED AUTHOR AUTHOR'S ORGANIZ ATION 04/07/2021 [facility] DATE CREATED AUTHOR AUTHOR'S ORGANIZ ATION 05/21/2022 [facility] REASON FOR VISIT (unrecogniz ed section and content) PAIN IN LEFT SHOULDER AND AR MLEFT HEAL PAIN Care Teams (unrecognized sec tion and content) Team Status: Inactive Member Role Status Dates PHYSICIAN NO FAMILY Primary Care Provider Active DAY Harris Attending Provider Active Team Status: Active Member Role Status Dates PHYSICIAN NO FAMILY Primary Care Provider Active Goals (unrecognized section and content) Goals may be documented in a n alternate section FOR RECORDS PERTAINING TO PATIENTS WHO ARE OR HAVE BEEN ENROLLED IN A CHEMICAL DEPENDENCY/SUBSTANCEABUSE PROGRAM, SOME INFORMATION MAY BE OMITTED. This clinical summary was aggregated from multiple sources. Caution should be exercised in using it in the provision of clinical care. This summary normalizes information from multiple sources, and as a consequence, information in this document may materially change the coding, format and clinical context of patient data. In addition, data may be omitted in some cases. CLINICAL DECISIONS SHOULD BE BASED ON THE PRIMARY CLINICAL RECORDS. [facility] [employer] [facility]. provides no warranty or guarantee of the accuracy or completeness of information in this document.
--- NOTE | 2023-12-23 20:38 | ED_ITS ---
HPI HPI - Extremity Injury (Upper) General Chief Complaint: Extremity Injury, Upper Stated Complaint: UE IMJURY Time Seen by Provider: 12/23/23 20:29 Source: patient Mode of arrival: walk-in Limitations: no limitations History of Present Illness HPI narrative: Patient is a 33-year-old female who presents to the emergency department for an injury to the left hand that occurred at home just prior to arrival. She states she was walking her dog with a retractable leash when the leash caught on her finger and she avulsed a superficial portion of skin from the palmar aspect of the left fourth finger. She has a minimal abrasion in the webspace between the thumb and index finger of the left hand. There is no bleeding, no deep laceration. Tetanus is up-to-date. Patient is not concerned for . No other associated injuries. Related Data Previous Rx's ?Medication ?Instructions ?Recorded cephalexin 500 mg capsule 500 mg PO Q8H 10 days #30 caps 07/11/23 ondansetron 4 mg disintegrating 4 mg PO Q6H PRN nausea and 07/11/23 tablet vomiting #12 tabs oxycodone-acetaminophen 5 mg-325 1 tab PO Q6H PRN pain #12 tabs 07/11/23 mg tablet (Percocet) sulfamethoxazole 800 1 tab PO BID 10 days #20 tabs 07/11/23 mg-trimethoprim 160 mg tablet (Bactrim DS) ketorolac 10 mg tablet 10 mg PO TID PRN pain #10 tabs 12/23/23 Allergies Allergy/AdvReac Type Severity Reaction Status Date / Time No Known Drug Allergies Allergy Verified 12/23/23 20:32 Opioid HPI Opioid Management Most Recent Pain and Opioid Data: No Data to Display Review of Systems ROS Constitutional Denies: fever or chills Ears, nose, mouth, and throat Denies: throat pain or nasal congestion Respiratory Denies: shortness of breath Gastrointestinal Denies: nausea or vomiting Musculoskeletal Reports: extremity pain; Denies: back pain or neck pain Integumentary/Breast Denies: rash Hematologic/Lymphatic Denies: easy bruising or easy bleeding Exam Narrative Exam Narrative: Gen.: Awake, alert, in no distress Head: Normocephalic, atraumatic ENT: Moist mucous membranes Respiratory: No respiratory distress Extremities: Superficial skin avulsion from the palmar aspect of the left fourth finger at the PIP joint. No deep laceration or subcutaneous tissue exposure. No bleeding noted. Normal flexion and extension of the fingers, no circumferential swelling, no ecchymosis. Psych: Normal mood and affect Neuro: No focal neuro deficit Skin: Warm, dry, intact Constitutional Vital Signs, click to edit/add: Last Vital Signs Temp 98.3 F 12/23/23 20:32 Pulse 70 12/23/23 20:32 Resp 18 12/23/23 20:32 BP 135/86 12/23/23 20:32 Pulse Ox 98 12/23/23 20:32 O2 Del Method Room Air 12/23/23 20:32 Course Vital Signs Vital signs: Vital Signs Temperature 98.3 F 12/23/23 20:32 Pulse Rate 70 12/23/23 20:32 Respiratory Rate 18 12/23/23 20:32 Blood Pressure 135/86 12/23/23 20:32 Pulse Oximetry 98 12/23/23 20:32 Oxygen Delivery Method Room Air 12/23/23 20:32 Temperature 98.3 F 12/23/23 20:32 Pulse Rate 70 12/23/23 20:32 Respiratory Rate 18 12/23/23 20:32 Blood Pressure 135/86 12/23/23 20:32 Pulse Oximetry 98 12/23/23 20:32 Oxygen Delivery Method Room Air 12/23/23 20:32 MDM - Extremity Injury (Upper) MDM Narrative Medical decision making narrative: Patient declined a test prior to xrays and medication. X-rays obtained of the left hand, patient is neurovascularly intact. Tetanus is up-to-date. Bacitracin applied to skin avulsion, no indication for suture repair. Patient discharged on NSAIDs to continue wound care, finger splint applied for comfort. Rest, ice, elevate. Return to the ER if symptoms change or worsen SUPERVISED APC VISIT, PHYSICIAN ATTESTATION: Based on the medical record the care appears appropriate. ? Medical Records Attestation: I reviewed the patient's medical records. Imaging Data XR hand: Attestation: I have reviewed the pertinent imaging results. Radiologist's impression: ITS Impressions Hand X-Ray 12/23/23 20:36 IMPRESSION: Unremarkable left finger radiographs. Electronically authenticated by: ALBERT LITTLE Date: 12/23/2023 21:02 Discharge Plan Discharge Stand Alone Forms: Portal Instructions Chief Complaint: Extremity Injury, Upper Clinical Impression: Injury of hand, left, Avulsion of skin Patient Disposition: Home, Self-Care Time of Disposition Decision: 20:41 Condition: Good Prescriptions / Home Meds: New ketorolac 10 mg tablet 10 mg PO TID PRN (Reason: pain) Qty: 10 0RF No Action sulfamethoxazole-trimethoprim [Bactrim DS] 800-160 mg tablet 1 tab PO BID 10 Days Qty: 20 0RF oxycodone-acetaminophen [Percocet] 5-325 mg tablet 1 tab PO Q6H PRN (Reason: pain) Qty: 12 0RF Rx Instructions: DX: L02.211 cephalexin 500 mg capsule 500 mg PO Q8H 10 Days Qty: 30 0RF ondansetron 4 mg tablet,disintegrating 4 mg PO Q6H PRN (Reason: nausea and vomiting) Qty: 12 0RF Print Language: Emirati Instructions: Skin Avulsion (ED) Referrals: Physician,Non-Staff, MD [Primary Care Provider] - 1 week Discharge Date/Time: 12/23/23 21:22
[2023-12-23] MEDS: KETOROLAC TROMETHAMINE 10 MG TABLET PO (20:53)
[2023-12-23] MEDS: BACITRACIN 0.9 GM PACKET 1 PACKET TOPICAL (20:53)
== END 2023-12-23 21:22 | disposition home or self-care (01) ==
PROVIDERS: Emergency Provider Internal Medicine
DX: S61.402A Unspecified open wound of left hand, initial encounter (principal); W23.0XXA Caught, crushed, jammed, or pinched between moving objects, initial encounter
CPT/HCPCS: 73130; 99284